=== PATIENT | female | born 1965 | race African-American/Black ===

== ENCOUNTER → 2021-09-15 | Outpatient (CLI) | payer MEDICARE, OTHER ==
--- NOTE | 2021-09-16 03:22 | MR ---
EXAMINATION TYPE: MR ankle LT wo/w con DATE OF EXAM: 09/15/2021 COMPARISON: None HISTORY: Left ankle pain, mass on medial side to top of foot, marker placed. CONTRAST: Standard multiplanar, multisequence MRI departmental protocol images were obtained without contrast a nd with 7 mL intravenous Gadavist gadolinium contrast. The ankle mortise is anatomic. The collateral ligaments appear intact. Medial and lateral flexor tend ons of the foot appear intact. The Achilles tendon is intact. Plantar fascia appears normal. There is small ankle joint effusion. There is oval shaped mass on the anterior aspect of the talus and navicular that measures 5.2 x 1.7 x 3.1 cm. The mass has T1 increased signal and decreased signal on the T2 images. This is consistent w ith fat. There are internal septations. There is some anterior displacement of the extensor tendons o f the foot. I see no bony destructive process. No pathologic enhancement. There is some spurring and subchondral fluid signal changes on both sides of the second tarsometatarsal joint and consistent wit h osteoarthritis. IMPRESSION: Oval-shaped mass in the anterior aspect of the midfoot is likely a lipoma. Margins are sharp. This aguilar s benign features. There is a small ankle joint effusion suggestive of minimal synovitis. No fracture seen.
== END | disposition home or self-care (01) ==
LOC: RADMRIMAIN 17:09
PROVIDERS: ATTEND Podiatrist Foot & Ankle Surgery
DX: M25.472 Effusion, left ankle (principal)
CPT/HCPCS: 73723; A9585

== ENCOUNTER 2022-11-25 06:15 | Inpatient (IN) | payer MEDICARE, OTHER ==
[2022-11-25] MEDS ORDERED: LABETALOL 5 MG/ML VIAL MDV IVP STA (06:53)
[2022-11-25] MEDS ORDERED: MORPHINE SULFATE 4 MG/ML SYRINGE IV STA (06:53)
[2022-11-25] MEDS ORDERED: ONDANSETRON 4 MG/2 ML VIAL IVP STA (06:53)
[2022-11-25] MEDS ORDERED: SODIUM CHLORIDE 0.9% 1,000 ML IV STA (06:53)
--- NOTE | 2022-11-25 06:54 | ED ---
Headache HPI - General Source: RN notes reviewed, old records reviewed Mode of arrival: ambulatory Limitations: no limitations - History of Present Illness MD Complaint: headache, other (Elevated blood pressure) -: hour(s) Onset Description: sudden Location: frontal Severity: mild Severity scale (1-10): 3 Quality: aching Consistency: constant Improves With: nothing Worsens With: none Associated Symptoms: nausea, vomiting Other Symptoms: chest pain, cough Treatments Prior to Arrival: none <Jose E Garay - Last Filed: 11/25/22 07:41> <Jose E Billings - Last Filed: 11/25/22 10:01> - General Chief Complaint: Recheck/Abnormal Lab/Rx Stated Complaint: Headache, High BP Time Seen by Provider: 11/25/22 06:39 - History of Present Illness Initial Comments: This is a 57-year-old female DF for evaluation today. Patient Dese for evaluation of not feeling well. Headache that woke her up from sleep and severely elevated blood pressure. Patient took her blood pressure home founding it to be elevated but admits not taking her blood pressure medications for greater than 2 weeks. Patient has not taken her blood pressure not similar amount of time. Patient does have a family history of aneurysm she is very currently anxious and concerned that she could have an aneurysm. (Jose E Garay) - Related Data Previous Rx's Medication Instructions Recorded Ibuprofen [Motrin] 600 mg PO Q8HR PRN #20 tab 04/27/15 methocarbamoL [Robaxin-750] 750 mg PO TID PRN #30 tablet 04/27/15 Allergies Allergy/AdvReac Type Severity Reaction Status Date / Time No Known Allergies Allergy Verified 04/27/15 05:06 Review of Systems ROS Other: All systems not noted in ROS Statement are negative. <Jose E Garay - Last Filed: 11/25/22 07:41> ROS Other: All systems not noted in ROS Statement are negative. <Jose E Billings - Last Filed: 11/25/22 10:01> ROS Statement: Those systems with pertinent positive or pertinent negative responses have been documented in the HPI. Past Medical History Past Medical History: No Reported History History of Any Multi-Drug Resistant Organisms: None Reported Additional Past Surgical History / Comment(s): knee surgery Past Psychological History: No Psychological Hx Reported Smoking Status: Former smoker Past Alcohol Use History: None Reported Past Drug Use History: None Reported <Jose E Garay - Last Filed: 11/25/22 07:41> General Exam Limitations: no limitations General appearance: alert, in no apparent distress Head exam: Present: atraumatic, normocephalic, normal inspection Eye exam: Present: normal appearance, PERRL, EOMI. Absent: scleral icterus, conjunctival injection, periorbital swelling ENT exam: Present: normal exam, mucous membranes moist Neck exam: Present: normal inspection. Absent: tenderness, meningismus, lymphadenopathy Respiratory exam: Present: normal lung sounds bilaterally. Absent: respiratory distress, wheezes, rales, rhonchi, stridor Cardiovascular Exam: Present: regular rate, normal rhythm, normal heart sounds. Absent: systolic murmur, diastolic murmur, rubs, gallop, clicks GI/Abdominal exam: Present: soft, normal bowel sounds. Absent: distended, tenderness, guarding, rebound, rigid Extremities exam: Present: normal inspection, full ROM, normal capillary refill. Absent: tenderness, pedal edema, joint swelling, calf tenderness Back exam: Present: normal inspection Neurological exam: Present: alert, oriented X3, CN II-XII intact Psychiatric exam: Present: normal affect, normal mood Skin exam: Present: warm, dry, intact, normal color. Absent: rash <Jose E Garay - Last Filed: 11/25/22 07:41> Course <Jose E Garay - Last Filed: 11/25/22 07:41> Vital Signs 11/25/22 11/25/22 11/25/22 06:26 08:44 08:54 Temperature 98.0 F Pulse Rate 91 78 Respiratory 16 Rate Blood Pressure 191/112 198/121 202/120 O2 Sat by Pulse 99 Oximetry 11/25/22 09:43 Temperature Pulse Rate Respiratory Rate Blood Pressure 213/127 O2 Sat by Pulse Oximetry - Reevaluation(s) Reevaluation #1: 11/25/22 07:38 Medical record is reviewed verbally (Jose E Garay) Reevaluation #2: 11/25/22 07:38 Headache and blood pressure improving (Jose E Garay) Reevaluation #4: 11/25/22 07:39 Was pt. sent in by a medical professional or institution (DANIELLE Malhotra, LIME HIDE INSPECTOR, urgent care, hospital, or long term...) When possible be specific @ -no Did you speak to anyone other than the patient for history (EMS, parent, family, police, friend...)? What history was obtained from this source @ -no Did you review nursing and triage notes (agree or disagree)? Why? @ -agree Are old charts reviewed (outside hosp., previous admission, EMS record, old EKG, old radiological studies, urgent care reports/EKG's, long term records)? Report findings @ -yes Differential Diagnosis (chest pain, altered mental status, abdominal pain women, abdominal pain men, vaginal bleeding, weakness, fever, dyspnea, syncope, headache, dizziness, GI bleed, back pain, seizure, CVA, palpatations, mental health, musculoskeletal)? @ -prior EKG interpreted by me (3pts min.). @ -yes X-rays interpreted by me (1pt min.). @ -yes CT interpreted by me (1pt min.). @ -no U/S interpreted by me (1pt. min.). @ -no What testing was considered but not performed or refused? (CT, X-rays, U/S, labs)? Why? @ -none What meds were considered but not given or refused? Why? @ -none Did you discuss the management of the patient with other professionals (professionals i.e. DANIELLE Malhotra, LIME HIDE INSPECTOR, lab, RT, psych nurse, social security benefits interviewer, nail welter, teacher, ship's officer, case management coordinator)? Give summary @ -no Was smoking cessation discussed for >3mins.? @ -no Was critical care preformed (if so, how long)? @ -no Were there social determinants of health that impacted care today? How? (Homelessness, low income, unemployed, alcoholism, drug addiction, transportation, low edu. Level, literacy, decrease access to med. care, snf, rehab)? @ -none Was there de-escalation of care discussed even if they declined (Discuss DNR or withdrawal of care, Hospice)? DNR status @ -no What co-morbidities impacted this encounter? (DM, HTN, Smoking, COPD, CAD, Cancer, CVA, ARF, Chemo, Hep., AIDS, mental health diagnosis, sleep apnea, morbid obesity)? @ -none Was patient admitted / discharged? Hospital course, mention meds given and route, prescriptions, significant lab abnormalities, going to OR and other pertinent info. @ - Undiagnosed new problem with uncertain prognosis? @ -no Drug Therapy requiring intensive monitoring for toxicity (Heparin, Nitro, Insulin, Cardizem)? @ -no Were any procedures done? @ -no Diagnosis/symptom? @ - Acute, or Chronic, or Acute on Chronic? @ -Acute Uncomplicated (without systemic symptoms) or Complicated (systemic symptoms)? @ -Complicated Side effects of treatment? @ -no Exacerbation, Progression, or Severe Exacerbation? @ -exacerbation Poses a threat to life or bodily function? How? (Chest pain, [place], [place], pneumonia, PE, COPD, DKA, ARF, appy, cholecystitis, CVA, Diverticulitis, Homicidal, Suicidal, threat to staff... and all critical care pts) @ -yes (Jose E Garay) Reevaluation #5: 11/25/22 07:39 Differential Headache: Migraine, tension, cluster, carbon monoxide, central venous thrombosis, pension karma temporal arteritis, acute closure glaucoma, intercranial hemorrhage, mastoiditis, sinusitis, head injury, this is not meant to be an all-inclusive list. (Jose E Garay) Medical Decision Making - EKG Data -: EKG Interpreted by Me (EKG is sinus 65 NJ 157 QRS 89 QTC 380) <Jose E Garay - Last Filed: 11/25/22 07:41> - Lab Data Result diagrams: 11/25/22 07:19 11/25/22 07:19 <Jose E Billings - Last Filed: 11/25/22 10:01> - Medical Decision Making CT interpreted by me (1pt min.). @ -CT of the brain shows no acute abnormality. CT angiogram of the head and neck shows no acute abnormality U/S interpreted by me (1pt. min.). @ -None done What testing was considered but not performed or refused? (CT, X-rays, U/S, labs)? Why? @ -None What meds were considered but not given or refused? Why? @ -None Did you discuss the management of the patient with other professionals (professionals i.e. , PA, LIME HIDE INSPECTOR, lab, RT, psych nurse, social security benefits interviewer, nail welter, teacher, ship's officer, case management coordinator)? Give summary @ -I spoke with the [facility] hospitalist agreed to admit the patient Was smoking cessation discussed for >3mins.? @ -No Was critical care preformed (if so, how long)? @ -No Were there social determinants of health that impacted care today? How? (Homelessness, low income, unemployed, alcoholism, drug addiction, transportation, low edu. Level, literacy, decrease access to med. care, snf, rehab)? @ -No Was there de-escalation of care discussed even if they declined (Discuss DNR or withdrawal of care, Hospice)? DNR status @ -No What co-morbidities impacted this encounter? (DM, HTN, Smoking, COPD, CAD, Cancer, CVA, ARF, Chemo, Hep., AIDS, mental health diagnosis, sleep apnea, morbid obesity)? @ -None Was patient admitted / discharged? Hospital course, mention meds given and route, prescriptions, significant lab abnormalities, going to OR and other pertinent info. @ -Received multiple doses of hydralazine and labetalol to help get the pressure down I spoke with [facility] hospitalist agreed to admit the patient admitted the patient wrote admitting orders Undiagnosed new problem with uncertain prognosis? @ -No Drug Therapy requiring intensive monitoring for toxicity (Heparin, Nitro, Insulin, Cardizem)? @ -No Were any procedures done? @ -No Diagnosis/symptom? @ -Hypertensive urgency Acute, or Chronic, or Acute on Chronic? @ -Acute Uncomplicated (without systemic symptoms) or Complicated (systemic symptoms)? @ -Complicated Side effects of treatment? @ -No Exacerbation, Progression, or Severe Exacerbation? @ -No Poses a threat to life or bodily function? How? (Chest pain, [place], [place], pneumonia, PE, COPD, DKA, ARF, appy, cholecystitis, CVA, Diverticulitis, Homicidal, Suicidal, threat to staff... and all critical care pts) @ -Yes this can lead to an intercranial bleeding and possible (Jose E Billings) - Lab Data Lab Results 11/25/22 11/25/22 11/25/22 Range/Units 07:19 07:19 07:19 WBC 4.8 (3.8-10.6) k/uL RBC 3.91 (3.80-5.40) m/uL Hgb 12.5 (11.4-16.0) gm/dL Hct 36.8 (34.0-46.0) % MCV 94.1 (80.0-100.0) fL MCH 32.1 (25.0-35.0) pg MCHC 34.1 (31.0-37.0) g/dL RDW 13.5 (11.5-15.5) % Plt Count 239 (150-450) k/uL MPV 7.8 Neutrophils % 66 % Lymphocytes % 26 % Monocytes % 4 % Eosinophils % 2 % Basophils % 1 % Neutrophils # 3.2 (1.3-7.7) k/uL Lymphocytes # 1.3 (1.0-4.8) k/uL Monocytes # 0.2 (0-1.0) k/uL Eosinophils # 0.1 (0-0.7) k/uL Basophils # 0.0 (0-0.2) k/uL PT 10.2 (9.0-12.0) sec INR 1.0 (<1.2) APTT 24.7 (22.0-30.0) sec Sodium 139 (137-145) mmol/L Potassium 3.9 (3.5-5.1) mmol/L Chloride 104 (98-107) mmol/L Carbon Dioxide 24 (22-30) mmol/L Anion Gap 11 mmol/L BUN 21 H (7-17) mg/dL Creatinine 0.72 (0.52-1.04) mg/dL Est GFR (CKD-EPI)AfAm >90 (>60 ml/min/1.73 sqM) Est GFR (CKD-EPI)NonAf >90 (>60 ml/min/1.73 sqM) Glucose 104 H (74-99) mg/dL Plasma Lactic Acid Crow (0.7-2.0) mmol/L Calcium 9.6 (8.4-10.2) mg/dL Phosphorus 3.3 (2.5-4.5) mg/dL Magnesium 1.7 (1.6-2.3) mg/dL Total Bilirubin 0.7 (0.2-1.3) mg/dL AST 22 (14-36) U/L ALT 20 (4-34) U/L Alkaline Phosphatase 73 (38-126) U/L Troponin I (0.000-0.034) ng/mL Total Protein 7.0 (6.3-8.2) g/dL Albumin 4.4 (3.5-5.0) g/dL 11/25/22 11/25/22 Range/Units 07:19 07:19 WBC (3.8-10.6) k/uL RBC (3.80-5.40) m/uL Hgb (11.4-16.0) gm/dL Hct (34.0-46.0) % MCV (80.0-100.0) fL MCH (25.0-35.0) pg MCHC (31.0-37.0) g/dL RDW (11.5-15.5) % Plt Count (150-450) k/uL MPV Neutrophils % % Lymphocytes % % Monocytes % % Eosinophils % % Basophils % % Neutrophils # (1.3-7.7) k/uL Lymphocytes # (1.0-4.8) k/uL Monocytes # (0-1.0) k/uL Eosinophils # (0-0.7) k/uL Basophils # (0-0.2) k/uL PT (9.0-12.0) sec INR (<1.2) APTT (22.0-30.0) sec Sodium (137-145) mmol/L Potassium (3.5-5.1) mmol/L Chloride (98-107) mmol/L Carbon Dioxide (22-30) mmol/L Anion Gap mmol/L BUN (7-17) mg/dL Creatinine (0.52-1.04) mg/dL Est GFR (CKD-EPI)AfAm (>60 ml/min/1.73 sqM) Est GFR (CKD-EPI)NonAf (>60 ml/min/1.73 sqM) Glucose (74-99) mg/dL Plasma Lactic Acid Crow 1.2 (0.7-2.0) mmol/L Calcium (8.4-10.2) mg/dL Phosphorus (2.5-4.5) mg/dL Magnesium (1.6-2.3) mg/dL Total Bilirubin (0.2-1.3) mg/dL AST (14-36) U/L ALT (4-34) U/L Alkaline Phosphatase (38-126) U/L Troponin I <0.012 (0.000-0.034) ng/mL Total Protein (6.3-8.2) g/dL Albumin (3.5-5.0) g/dL Disposition <Jose E Garay - Last Filed: 11/25/22 07:41> Time of Disposition: 10:01 <Joes E Billings - Last Filed: 11/25/22 10:01> Clinical Impression: Hypertensive urgency Disposition: ADMITTED IP TO THIS HOSP Referrals: Gerry Marquez MD [Primary Care Provider] - 1-2 days
[2022-11-25 07:54] LABS: Partial Thromboplastin Time 24.7 sec (22.0-30.0); Prothrombin Time 10.2 sec (9.0-12.0)
[2022-11-25 08:03] LABS: ALT 20 U/L (4-34); AST 22 U/L (14-36); African American GFR (CKD) >90 (>60 ml/min/1.73 sqM); Albumin 4.4 g/dL (3.5-5.0); Alkaline Phosphatase 73 U/L (38-126); Anion Gap 11 mmol/L; Blood Urea Nitrogen 21 mg/dL (7-17); Calcium 9.6 mg/dL (8.4-10.2); Carbon Dioxide 24 mmol/L (22-30); Chloride 104 mmol/L (98-107); Glucose 104 mg/dL (74-99); Magnesium 1.7 mg/dL (1.6-2.3); Non-African American GFR(CKD) >90 (>60 ml/min/1.73 sqM); Phosphorus 3.3 mg/dL (2.5-4.5); Potassium 3.9 mmol/L (3.5-5.1); Sodium 139 mmol/L (137-145); Total Bilirubin 0.7 mg/dL (0.2-1.3)
[2022-11-25] MEDS ORDERED: hydrALAZINE HCL 20 MG/ML 1 ML VIAL IVP STA ×3 (08:16→09:48)
--- NOTE | 2022-11-25 08:20 | CT ---
EXAMINATION TYPE: CT brain wo con DATE OF EXAM: 11/25/2022 COMPARISON: None HISTORY: 57-year-old female weakness, HEADACHE TECHNIQUE: Examination was done in axial plane without intravenous contrast. Coronal and sagittal r econstructions performed. CT DLP: 1089 mGycm Automated exposure control for dose reduction was used. FINDINGS: There is no evidence of acute intracranial hemorrhage, acute ischemic changes, mass, mass-effect, or extra-axial fluid collection. There is no effacement of cerebral sulci or basal subarachnoid cister ns. There is no hydrocephalus. There is no midline shift. Olmos-white matter distinction is preserv ed. Paranasal sinuses and mastoid air cells well pneumatized. Orbits and globes are intact. IMPRESSION: No acute intracranial abnormality seen.
[2022-11-25 08:24] LABS: Basophils % (A) 1 %; Eosinophils # (A) 0.1 k/uL (0-0.7); Eosinophils % (A) 2 %; HCT 36.8 % (34.0-46.0); HGB 12.5 gm/dL (11.4-16.0); Lymphocytes # (A) 1.3 k/uL (1.0-4.8); Lymphocytes % (A) 26 %; MCH 32.1 pg (25.0-35.0); MCHC 34.1 g/dL (31.0-37.0); MCV 94.1 fL (80.0-100.0); Mean Platelet Volume 7.8; Monocytes # (A) 0.2 k/uL (0-1.0); Monocytes % (A) 4 %; Neutrophils # (A) 3.2 k/uL (1.3-7.7); Neutrophils % (A) 66 %; Platelet Count 239 k/uL (150-450); RBC 3.91 m/uL (3.80-5.40); RDW 13.5 % (11.5-15.5); WBC 4.8 k/uL (3.8-10.6)
--- NOTE | 2022-11-25 08:38 | CT ---
EXAMINATION TYPE: CT angio head neck DATE OF EXAM: 11/25/2022 COMPARISON: Brain same day HISTORY: 57-year-old female HEADACHE TECHNIQUE: Contiguous axial scanning of the head and neck performed with IV Contrast, patient injecte d with 65 mL of Isovue 370. Coronal/sagittal MIP reconstructions performed. 3-D reconstructions gener ated on a dedicated independent workstation. CT DLP: 403.2 mGycm Automated exposure control for dose reduction was used. FINDINGS: Neck: Conventional arch vessel branching anatomy. The right vertebral artery is slightly more dominant but both vessels are otherwise patent throughout their course. The right common and right internal carotid arteries are widely patent by NASCET criteria. The left common and left internal carotid arteries are widely patent by NASCET criteria. Brain: Dominant right vertebral artery. The left vertebral artery comes even more hypoplastic after the PICA takeoff. Uniformly diminutive caliber to the basilar artery with persistent origin to the bilateral post erior cerebral arteries which remain patent. The internal carotid arteries are patent. There is hypoplastic A1 segment left anterior cerebral artery. The anterior circulation is otherwise patent. Dural venous sinuses are patent. IMPRESSION: 1. NECK: WIDELY PATENT VERTEBRAL AND CAROTID ARTERIES OF THE NECK. DOMINANT RIGHT VERTEBRAL ARTERY. 2. HEAD: NO LARGE VESSEL INTRACRANIAL ARTERIAL OCCLUSION, SIGNIFICANT STENOSIS, OR ANEURYSMAL CHANGE IS SEEN. 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 CORRELATE F OR ANY CHRONIC SYMPTOMS OF VERTEBROBASILAR INSUFFICIENCY. 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
[2022-11-25] MEDS ORDERED: LORazepam 2 MG/ML INJ IV STA (09:51)
[2022-11-25] MEDS ORDERED: traMADol 50 MG TAB PO PRN (10:14)
[2022-11-25] MEDS ORDERED: ONDANSETRON 4 MG/2 ML VIAL IVP PRN (10:14)
[2022-11-25] MEDS ORDERED: NALOXONE 0.4 MG/ML 1 ML VIAL IV PRN (10:14)
[2022-11-25] MEDS ORDERED: KETOROLAC 15 MG/ML 1 ML VIAL IVP PRN (10:14)
[2022-11-25] MEDS ORDERED: hydrALAZINE HCL 20 MG/ML 1 ML VIAL IVP PRN (10:17)
[2022-11-25] MEDS ORDERED: amLODIPine 5 MG TAB PO SCH (10:30)
[2022-11-25 10:35] LABS: Amphetamine Screen,Urine Not Detected (NotDetected); Barbiturate Screen,Urine Not Detected (NotDetected); Benzodiazepines Screen,Urine Not Detected (NotDetected); Cocaine Screen,Urine Not Detected (NotDetected); Methadone Screen, Urine Not Detected (NotDetected); Opiate Screen,Urine Detected (NotDetected); Oxycodone Screen, Urine Not Detected (NotDetected); Phencyclidine Screen,Urine Not Detected (NotDetected); Tricyclic Antidepressant,Urine Not Detected (NotDetected); Urn Cannabinoid Scrn Not Detected (NotDetected)
[2022-11-25] MEDS: ACETAMINOPHEN TAB 325 MG TAB PO PRN ×2 (12:01→18:00)
--- NOTE | 2022-11-25 13:13 | P.HPIM ---
History of Present Illness H&P Date: 11/25/22 Chief Complaint: Headaches, high blood pressure * 57-year-old lady with past medical history significant for hypertension, medication noncompliance present to the emergency department with complains of headache. Patient states she woke up with headache and checked her blood pressure which was severely elevated. Patient states he has been prescribed antihypertensive medication however she has not taken meds for more than 2 weeks. Patient decided to seek medical attention due to previous history of stroke and history of brain aneurysm and family * At the time of presentation in ER patient was noted to have severely elevated blood pressure with systolic blood pressure in 200s. Patient was given when necessary IV hydralazine * Secondary to intractable headache CT head CT angiogram head and neck was done which was negative * EKG obtained in ER showed normal sinus rhythm no significant ST segment changes * Blood work obtained in ER was essentially negative patient toxicology was positive for opiates REVIEW OF SYSTEMS: Headache CONSTITUTIONAL: No fever, no malaise, no fatigue. HEENT: No recent visual problems or hearing problems. Denied any sore throat. CARDIOVASCULAR: No chest pain, orthopnea, PND, no palpitations, no syncope. PULMONARY: No shortness of breath, no cough, no hemoptysis. GASTROINTESTINAL: No diarrhea, no nausea, no vomiting, no abdominal pain. NEUROLOGICAL: No headaches, no weakness, no numbness. HEMATOLOGICAL: Denies any bleeding or petechiae. GENITOURINARY: Denies any burning micturition, frequency, or urgency. MUSCULOSKELETAL/RHEUMATOLOGICAL: Denies any joint pain, swelling, or any muscle pain. ENDOCRINE: Denies any polyuria or polydipsia. PHYSICAL EXAMINATION: GENERAL: The patient is alert and oriented x3, not in any acute distress. Well developed, well nourished. HEENT: Pupils are round and equally reacting to light. EOMI. No scleral icterus. No conjunctival pallor. Normocephalic, atraumatic. No pharyngeal erythema. No thyromegaly. CARDIOVASCULAR: S1 and S2 present. No murmurs, rubs, or gallops. PULMONARY: Chest is clear to auscultation, no wheezing or crackles. ABDOMEN: Soft, nontender, nondistended, normoactive bowel sounds. No palpable organomegaly. MUSCULOSKELETAL: No joint swelling or deformity. EXTREMITIES: No cyanosis, clubbing, or pedal edema. NEUROLOGICAL: Gross neurological examination did not reveal any focal deficits. SKIN: No rashes. Past Medical History Past Medical History: Hypertension History of Any Multi-Drug Resistant Organisms: None Reported Additional Past Surgical History / Comment(s): knee surgery Past Anesthesia/Blood Transfusion Reactions: No Reported Reaction Past Psychological History: No Psychological Hx Reported Smoking Status: Former smoker Past Alcohol Use History: None Reported Past Drug Use History: None Reported Medications and Allergies Home Medications Medication Instructions Recorded Confirmed Type No Known Home Medications 11/25/22 11/25/22 History Allergies Allergy/AdvReac Type Severity Reaction Status Date / Time No Known Allergies Allergy Verified 11/25/22 10:52 Physical Exam Vitals: Vital Signs Temp Pulse Pulse Resp BP BP Pulse Ox 11/25/22 12:16 105 H 16 162/101 98 11/25/22 12:14 100 11/25/22 11:53 109 H 16 11/25/22 11:52 98.4 F 109 H 16 178/103 98 11/25/22 10:48 159/96 11/25/22 09:43 213/127 11/25/22 08:54 202/120 11/25/22 08:44 78 198/121 11/25/22 06:26 98.0 F 91 16 191/112 99 Intake and Output 11/24/22 11/25/22 11/25/22 22:59 06:59 14:59 Other: Voiding Method Toilet Weight 77.111 kg 77.111 kg Results CBC & Chem 7: 11/25/22 07:19 11/25/22 07:19 Labs: Abnormal Lab Results - Last 24 Hours (Table) 11/25/22 11/25/22 Range/Units 07:19 09:47 BUN 21 H (7-17) mg/dL Glucose 104 H (74-99) mg/dL Urine Opiates Screen Detected H (NotDetected) Thrombosis Risk Factor Assmnt - Choose All That Apply Any of the Below Risk Factors Present?: Yes Each Factor Represents 1 point: Age 41-60 years, Obesity (BMI >25) Other Risk Factors: No Other congenital or acquired thrombophilia - If yes, enter type in comment: No Thrombosis Risk Factor Assessment Total Risk Factor Score: 2 Thrombosis Risk Factor Assessment Level: Low Risk Assessment and Plan Assessment: Assessment and plan Hypertensive urgency Headaches secondary to elevated blood pressure * Patient had CT head CT angiogram head and neck were obtained which was negative for acute intracranial process * In regards to hypertensive urgency patient received IV hydralazine in ED, started on amlodipine 10 mg daily. Patient was previously prescribed amlodipine however she has been on compliance * In regards to history of headache use Tylenol as needed * Follow-up on lipid profile as well potential discharge within next 24 hours * CODE STATUS is full code
[2022-11-25] MEDS: METOPROLOL SUCCINATE (ER) 25 MG TAB.ER.24H PO SCH (19:42)
[2022-11-26 00:05] VITALS: RESP 16
[2022-11-26 07:51] LABS: Basophils % (A) 1 %; Eosinophils # (A) 0.1 k/uL (0-0.7); Eosinophils % (A) 3 %; HCT 36.6 % (34.0-46.0); HGB 12.5 gm/dL (11.4-16.0); Lymphocytes # (A) 1.3 k/uL (1.0-4.8); Lymphocytes % (A) 30 %; MCH 32.2 pg (25.0-35.0); MCHC 34.1 g/dL (31.0-37.0); MCV 94.6 fL (80.0-100.0); Monocytes # (A) 0.2 k/uL (0-1.0); Monocytes % (A) 5 %; Neutrophils # (A) 2.6 k/uL (1.3-7.7); Neutrophils % (A) 60 %; Platelet Count 264 k/uL (150-450); RBC 3.87 m/uL (3.80-5.40); RDW 13.5 % (11.5-15.5); WBC 4.3 k/uL (3.8-10.6)
[2022-11-26 08:03] LABS: African American GFR (CKD) >90 (>60 ml/min/1.73 sqM); Anion Gap 11 mmol/L; Blood Urea Nitrogen 14 mg/dL (7-17); Calcium 9.9 mg/dL (8.4-10.2); Carbon Dioxide 22 mmol/L (22-30); Chloride 103 mmol/L (98-107); Glucose 96 mg/dL (74-99); Non-African American GFR(CKD) 90 (>60 ml/min/1.73 sqM); Potassium 4.2 mmol/L (3.5-5.1); Sodium 136 mmol/L (137-145)
[2022-11-26] MEDS: METOPROLOL SUCCINATE (ER) 25 MG TAB.ER.24H PO SCH (08:11)
[2022-11-26] MEDS ORDERED: amLODIPine 10 MG TAB PO SCH (09:00)
[2022-11-26] MEDS ORDERED: ENOXAPARIN 40 MG/0.4 ML SYRINGE SQ SCH (09:00)
[2022-11-26 11:37] VITALS: BP 141/95; PULSE 64; TEMP 98.6
--- NOTE | 2022-11-26 12:14 | P.DS ---
Providers Date of admission: 11/25/22 10:01 Expected date of discharge: 11/26/22 Attending physician: Yousuf Herron MD Primary care physician: Jimmy Taylor [facility] Course: * 57-year-old lady with past medical history significant for hypertension, medication noncompliance present to the emergency department with complains of headache. Patient states she woke up with headache and checked her blood pressure which was severely elevated. Patient states he has been prescribed antihypertensive medication however she has not taken meds for more than 2 weeks. Patient decided to seek medical attention due to previous history of stroke and history of brain aneurysm and family * At the time of presentation in ER patient was noted to have severely elevated blood pressure with systolic blood pressure in 200s. Patient was given when necessary IV hydralazine * Secondary to intractable headache CT head CT angiogram head and neck was done which was negative * EKG obtained in ER showed normal sinus rhythm no significant ST segment changes * Blood work obtained in ER was essentially negative patient toxicology was positive for opiates * 11/26: Patient seen and evaluated bedside, blood pressure significantly improved after oral medications. remains asymptomatic. Patient discharged home on amlodipine and metoprolol with request to follow-up with PCP outpatient PHYSICAL EXAMINATION: GENERAL: The patient is alert and oriented x3, not in any acute distress. Well developed, well nourished. HEENT: Pupils are round and equally reacting to light. EOMI. No scleral icterus. No conjunctival pallor. Normocephalic, atraumatic. No pharyngeal erythema. No thyromegaly. CARDIOVASCULAR: S1 and S2 present. No murmurs, rubs, or gallops. PULMONARY: Chest is clear to auscultation, no wheezing or crackles. ABDOMEN: Soft, nontender, nondistended, normoactive bowel sounds. No palpable organomegaly. MUSCULOSKELETAL: No joint swelling or deformity. EXTREMITIES: No cyanosis, clubbing, or pedal edema. NEUROLOGICAL: Gross neurological examination did not reveal any focal deficits. SKIN: No rashes. Assessment: Assessment and plan Hypertensive urgency Headaches secondary to elevated blood pressure * Patient had CT head CT angiogram head and neck were obtained which was negative for acute intracranial process * In regards to hypertensive urgency patient received IV hydralazine in ED, started on amlodipine 10 mg daily. Patient was previously prescribed amlodipine however she has been on compliance, initiated on metoprolol as well * In regards to history of headache use Tylenol as needed * Discharged home in stable condition outpatient follow-up with PCP Plan - Discharge Summary Discharge Rx Participant: No New Discharge Prescriptions: New amLODIPine [Norvasc] 10 mg PO DAILY 30 Days #30 tab Metoprolol Succinate (ER) [Toprol XL] 25 mg PO DAILY 30 Days #30 tab Discharge Medication List Metoprolol Succinate (ER) [Toprol XL] 25 mg PO DAILY 30 Days #30 tab 11/26/22 [Rx] amLODIPine [Norvasc] 10 mg PO DAILY 30 Days #30 tab 11/26/22 [Rx] Follow up Appointment(s)/Referral(s): Gerry Marquez MD [Primary Care Provider] - 1-2 days Discharge Disposition: HOME SELF-CARE
[2022-11-26 14:56] LABS: Chol/HDL Ratio 2.17 Ratio; LDL Cholesterol,Calculated 56.2 mg/dL (0.0-131.0); VLDL Calculation 10.64 mg/dL (5.00-40.00)
== END 2022-11-26 13:25 | disposition home or self-care (01) | DRG 305 ==
LOC: EC 06:15 → 3SCARD 10:01
PROVIDERS: ADMIT Internal Medicine; ATTEND Internal Medicine
DX: I16.0 Hypertensive urgency (principal); I10 Essential (primary) hypertension; T46.1X6A Underdosing of calcium-channel blockers, initial encounter; Z86.73 Personal history of transient ischemic attack (TIA), and cerebral infarction without residual deficits; Z87.891 Personal history of nicotine dependence; Z91.148 Patient's other noncompliance with medication regimen for other reason
CPT/HCPCS: 36415; 70450; 70496; 70498; 80048; 80053; 80061; 80306; 83605; 83735; 84100; 84145; 84443; 84484; 85025; 85610; 85730; 93005; 94760; 96374; 96375; 96376; 99285

== ENCOUNTER → 2023-05-17 | Outpatient (CLI) | payer MEDICARE ==
[2023-05-17 16:23] LABS: HCT 38.3 % (37.2-46.3); HGB 12.8 g/dL (12.0-15.0); MCH 30.8 pg (27.0-32.0); MCHC 33.4 g/dL (32.0-37.0); MCV 92.1 FL (80.0-97.0); Mean Platelet Volume 9.9 FL (9.5-12.2); NRBC Per 100 WBC 0 X 10*3/uL (0.00-0.01); Platelet Count 312 X 10*3/uL (140-440); RBC 4.16 X 10*6/uL (4.10-5.20); RDW 12.9 % (11.5-14.5); WBC 4.14 X 10*3/uL (4.50-10.00)
[2023-05-17 16:53] LABS: ALT 35 U/L (8-44); AST 17 U/L (13-35); Blood Urea Nitrogen 14.4 mg/dL (9.0-27.0); Calcium 9.8 mg/dL (8.7-10.3); Carbon Dioxide 24.6 mmol/L (21.6-31.8); Chloride 107 mmol/L (96-109); Chol/HDL Ratio 2.69 Ratio; Glucose 91 mg/dL (70-110); LDL Cholesterol,Calculated 69.6 mg/dL (0.0-131.0); Potassium 4.1 mmol/L (3.5-5.5); Sodium 144 mmol/L (135-145); VLDL Calculation 13.34 mg/dL (5.00-40.00)
== END | disposition home or self-care (01) ==
LOC: LABWHC1 10:38
PROVIDERS: ATTEND Internal Medicine Cardiovascular Disease
DX: I10 Essential (primary) hypertension (principal); E78.2 Mixed hyperlipidemia; R94.2 Abnormal results of pulmonary function studies
CPT/HCPCS: 36415; 80048; 80061; 84450; 84460; 85027